=== PATIENT | female | born 1965 | race Two or more races ===

== ENCOUNTER 2024-04-20 09:15 | Emergency (ER) | payer OTHER ==
[~2024-04-20] VITALS: Ht 170.2 cm; Wt 77.6 kg
[2024-04-20] MEDS ORDERED: HUMIRA40 MG/0.2 SQ (09:28)
[2024-04-20] MEDS ORDERED: PEPCID AC20 MG PO (09:30)
[2024-04-20] MEDS ORDERED: TREXALL5 MG PO (09:30)
[2024-04-20] MEDS ORDERED: FOLIC ACID1 MG PO (09:30)
[2024-04-20] MEDS ORDERED: PROTONIX40 MG PO (09:30)
[2024-04-20] MEDS ORDERED: NEURONTIN300 MG PO (09:31)
[2024-04-20] MEDS ORDERED: FAMOTIDINE/PF 20 MG/2 ML VIAL IV PUSH STA (09:50)
[2024-04-20] MEDS ORDERED: FAMOTIDINE/PF 20 MG/2 ML VIAL ONE (09:57)
[2024-04-20 10:17] LABS: HEMATOCRIT 37.3 % (36.0-45.00); HEMOGLOBIN 12.6 g/dL (12.0-15.00); MEAN CELL VOLUME 94.2 fL (80.00-100.00); MEAN CORPUSCULAR HEMOGLOBIN 31.9 pg (27.00-32.0); MEAN CORPUSCULAR HGB CONC 33.8 g/dl (32.0-36.0); PLATELET COUNT 321 K/uL (150-450); RED BLOOD COUNT 3.96 M/uL (4.00-6.00); RED CELL DISTRIBUTION WIDTH 15.8 % (11.5-14.5)
[2024-04-20 10:53] LABS: ALBUMIN 3.5 gm/dL (3.4-5.0); BILIRUBIN TOTAL 0.44 mg/dL (0.3-1.2); CALCIUM 9.1 mg/dL (8.5-10.1); CREATININE SERUM 1.09 mg/dL (0.55-1.02); GFR 51.55; GLOBULINA 3.7 G/DL (2.4-3.5); POTASSIUM 3.45 mEq/L (3.5-5.1); TOTAL PROTEIN 7.2 gm/dL (6.4-8.2)
== END 2024-04-20 11:35 | disposition home or self-care (01) ==
LOC: ER 09:16
PROVIDERS: General Practice
DX: B34.9 Viral infection, unspecified (principal); I10 Essential (primary) hypertension; L40.59 Other psoriatic arthropathy; Z88.8 Allergy status to other drugs, medicaments and biological substances